=== PATIENT | female | born 2005 | race Hispanic/Latino ===

== ENCOUNTER 2024-12-24 14:11 | Emergency (ER) | payer SELFPAY ==
[~2024-12-24] VITALS: Ht 170.2 cm; Wt 130.2 kg
[2024-12-24] MEDS: FAMOTIDINE 20 MG/2 ML VIAL IV STA (14:59)
[2024-12-24] MEDS: ONDANSETRON HCL INJ 2MG/ML 2ML 2 MG/ML VIAL IV STA (14:59)
[2024-12-24] MEDS: SODIUM CHLORIDE 0.9% 1000ML 1,000 ML IV ONE (15:00)
[2024-12-24] MEDS ORDERED: ONDANSETRON ODT4 MG PO (15:38)
[2024-12-24 15:55] VITALS: PULSE 88; RESP 18; TEMP 98; O2SAT 97
== END 2024-12-24 15:59 | disposition home or self-care (01) ==
LOC: FSED 14:20
DX: R10.31 Right lower quadrant pain (principal); N83.202 Unspecified ovarian cyst, left side; R11.0 Nausea
CPT/HCPCS: 74176; 80053; 81003; 81025; 85025; 99284; J2405; J7030; J1308